=== PATIENT | male | born 1970 | race African-American/Black ===

== ENCOUNTER 2025-06-08 18:45 | Emergency (ER) | payer BC | END 2025-06-08 20:10 | disposition home or self-care (01) | LOC: CSHERS 18:45 | DX: J10.00 Influenza due to other identified influenza virus with unspecified type of pneumonia (principal); D17.0 Benign lipomatous neoplasm of skin and subcutaneous tissue of head, face and neck; I10 Essential (primary) hypertension | CPT/HCPCS: 71046; 87428 ==